=== PATIENT | male | born 1955 | race Caucasian/White ===

== ENCOUNTER → 2018-12-25 08:53 | Outpatient (CLI) | payer OTHER, SELFPAY ==
[2018-12-25 12:58] LABS: Hemoglobin A1c 5.3 % (4.2-6.3)
[2018-12-25 13:08] LABS: Anion Gap 5 (5-15); BUN 14 mg/dL (7-18); Calcium,Total 8.9 mg/dL (8.5-10.1); Chloride 108 mmol/L (98-107); EST Glomerular Filtration Rate 80 mL/min (>60); Est Glom Filt Rate - Afr Amer 97 mL/min (>60); Glucose 100 mg/dL (74-106); Potassium 4.1 mmol/L (3.5-5.1); Sodium Level 141 mmol/L (136-145); T4 Free Direct 0.71 ng/dL (0.76-1.46); Thyroid Stim Hormone (TSH) 1.82 uIU/mL (0.358-3.74)
== END ==
PROVIDERS: Family Provider Family Medicine; PCP Family Medicine; Visit Provider Family Medicine
DX: R73.01 Impaired fasting glucose (principal); F41.9 Anxiety disorder, unspecified
CPT/HCPCS: 36415; 80048; 83036; 84439; 84443

== ENCOUNTER → 2020-04-09 08:32 | Outpatient (CLI) | payer OTHER, SELFPAY ==
[2020-04-09 13:02] LABS: Anion Gap 4 (5-15); BUN 15 mg/dL (7-18); Calcium,Total 8.5 mg/dL (8.5-10.1); Chloride 109 mmol/L (98-107); Cholesterol 206 mg/dL (200); Creatinine, Serum 0.94 mg/dL (0.70-1.30); EST Glomerular Filtration Rate 86 mL/min (>60); Est Glom Filt Rate - Afr Amer 104 mL/min (>60); Glucose 100 mg/dL (74-106); High Density Lipoprotein 61 mg/dL; Sodium Level 139 mmol/L (136-145); Thyroid Stim Hormone (TSH) 1.24 uIU/mL (0.358-3.74); Triglycerides 69 mg/dL; Very Low Density Lipoprotein 14 mg/dL (5-40)
== END ==
PROVIDERS: Referring Provider Family Medicine; Visit Provider Family Medicine
DX: R73.01 Impaired fasting glucose (principal); F41.9 Anxiety disorder, unspecified
CPT/HCPCS: 36415; 80048; 80061; 84443

== ENCOUNTER 2021-04-26 08:23 | Outpatient (CLI) | payer MEDICARE, OTHER, SELFPAY ==
--- NOTE | 2021-04-26 08:31 | US_ITS ---
PROCEDURES: ULTRASOUND AORTA REASON FOR EXAM: Male, 65 years old. Screening exam, former smoker TECHNIQUE: Ultrasound evaluation of the aorta was performed with real-time and static cherry-scale imaging. COMPARISON: None. FINDINGS: There is mild tortuous elongation of the abdominal aorta. Aorta measures: Proximal 2.5 cm. Middle 2.0 cm. Distal 2.2 cm. Aorta measure transversely: Proximal 2.3 cm. Middle 2.0 cm. Distal 2.0 cm. Right iliac artery measures: 1.4 cm. Right iliac artery measure transversely: 1.3 cm. Left iliac artery measures: 1.4 cm. Left iliac artery measure transversely: 1.3 cm. There is no demonstrated aneurysm.. US/Aorta IMPRESSION: Normal abdominal aorta. Electronically Signed: Javier Garcia MD at 12:20 EST ,
== END 2021-04-26 23:59 | disposition home or self-care (01) ==
PROVIDERS: PCP Family Medicine; Visit Provider Family Medicine
DX: Z87.891 Personal history of nicotine dependence (principal)
CPT/HCPCS: 76775

== ENCOUNTER → 2022-08-01 | Outpatient (CLI) | payer MEDICARE, OTHER, SELFPAY ==
[2022-08-01 15:45] LABS: Absolute Lymphocyte Count 1.49 X10^3/uL (0.83-4.51); Absolute Neutrophil Count 2.9 X10^3/uL (2.0-7.7); Basophil# 0.06 X10^3/uL; Basophil% 1.2 % (0-1); Eosinophil# 0.12 X10^3/uL; Eosinophils% 2.3 % (0-5); Hematocrit 44.4 % (40-54); Hemoglobin 14.8 g/dL (13.0-16.5); Lymphocyte # 1.49 X10^3/ul (0.83-4.51); Lymphocyte % 28.9 % (19-41); Mean Corp Hgb Conc 33.3 g/dL (32-36); Mean Corpuscular Hgb 32.5 pg (27.0-32.0); Mean Corpuscular Volume 97.4 fL (80-94); Mean Platelet Vol. 9.5 fl (6.2-12.0); Monocyte# 0.61 X10^3/uL; Monocyte% 11.8 % (0-10); NRBC Flagged by Analyzer 0 % (0-5); Neutrophil # 2.87 X10^3/uL (2.7-7.7); Neutrophil % 55.6 % (47-70); Platelet Count 279 K/mm3 (150-450); RBC Distribution Width CV 12.6 % (11.6-14.6); RBC Distribution Width SD 45.3 fl (35.1-43.9); Red Blood Count 4.56 M/mm3 (4.6-6.2); White Blood Count 5.2 K/mm3 (4.4-11.0)
[2022-08-01 15:49] LABS: AST(SGOT) 34 U/L (15-37); Alanine Aminotransfer ALT/SGPT 53 U/L (16-61); Albumin, Serum 3.8 g/dL (3.2-5.0); Alkaline Phosphatase 49 U/L (45-117); Anion Gap 6 (5-15); BUN 8 mg/dL (7-18); Calcium,Total 8.9 mg/dL (8.5-10.1); Chloride 106 mmol/L (98-107); Cholesterol 232 mg/dL (200); EST Glomerular Filtration Rate 80 mL/min (>60); Est Glom Filt Rate - Afr Amer 96 mL/min (>60); Globulin 3.9 g/dL (2.2-4.2); Glucose 97 mg/dL (74-106); High Density Lipoprotein 71 mg/dL; Potassium 4.2 mmol/L (3.5-5.1); Protein, Total 7.7 g/dL (6.4-8.2); Sodium Level 140 mmol/L (136-145); Triglycerides 92 mg/dL; Very Low Density Lipoprotein 18 mg/dL (5-40)
== END | disposition home or self-care (01) ==
LOC: BFHLAB 11:54
PROVIDERS: PCP Nurse Practitioner Family; Referring Provider Nurse Practitioner Family; Visit Provider Nurse Practitioner Family
DX: R73.01 Impaired fasting glucose (principal); I10 Essential (primary) hypertension; E78.5 Hyperlipidemia, unspecified
CPT/HCPCS: 36415; 80053; 80061; 85025

== ENCOUNTER → 2022-09-25 | Outpatient (CLI) | payer MEDICARE, OTHER, SELFPAY ==
[2022-09-25 12:52] LABS: Cholesterol 230 mg/dL (200); High Density Lipoprotein 63 mg/dL; Triglycerides 78 mg/dL; Very Low Density Lipoprotein 16 mg/dL (5-40)
== END | disposition home or self-care (01) ==
LOC: BFHLAB 09:20
PROVIDERS: PCP Nurse Practitioner Family; Referring Provider Nurse Practitioner Family; Visit Provider Nurse Practitioner Family
DX: E78.5 Hyperlipidemia, unspecified (principal)
CPT/HCPCS: 36415; 80061

== ENCOUNTER 2022-10-19 09:05 | Day surgery (SDC) | payer MEDICARE, OTHER, SELFPAY ==
[2022-10-19 09:32] VITALS: BP 153/80; PULSE 57; RESP 16; TEMP 36.6; O2SAT 98; BMI 27.0
[2022-10-19] MEDS: Lactated Ringers 1,000 ML 15 ML IV (09:36)
--- NOTE | 2022-10-19 10:15 | COLBX_PTH ---
PATIENT: JASON BRISCOE LOC: EN U#:[id number] AGE/SX: 67/M ROOM: RE10/19/[address]: Dr. Te Tran DO : 1955 BED: DIS: 10/19/2022 SPEC #: [id number] RECD: 10/19/22 12:56 STATUS: CINDY REArnulfo #: [id number] HERB: 10/19/22 10:[address]: Te Tran DEPT: SURGICAL PATHOLOGY RECD BY: Juliet Joyner ENTERED: 10/19/22 13:39 SP TYPE: COLON BX OTHR DR: Lenore Saleh, DOWELER-C Tissues: A - COLON BIOPSY B - COLON BIOPSY Procedures: Surgery Specimen Level IV HEADER OPERATION: Colonoscopy - open access (MAC), biopsy PRE-OP DIAGNOSIS: Screening TISSUE SUBMITTED: A - Hepatic flexure polyp biopsy, B - Splenic flexure polyp biopsy MICROSCOPIC DIAGNOSIS A. Hepatic flexure polyp, biopsy: Tubular adenoma. B. Splenic flexure polyp, biopsy: Tubular adenoma. BEAR:claudia 10/20/2022 MICROSCOPIC DESCRIPTION Slides are reviewed. GROSS DESCRIPTION A - Received in fixative is one container labeled with the patient's name and designated hepatic flexure polyp. The specimen consists of multiple irregular fragments of light french soft tissue that in aggregate measure 0.8 x 0.5 x 0.1 cm. The specimen is totally submitted in one cassette. B - Received in fixative is one container labeled with the patient's name and designated splenic flexure polyp. The specimen consists of one irregular fragment of light french soft tissue that measures 0.6 x 0.3 x 0.1 cm. The specimen is totally submitted in one cassette. / BEAR:claudia 10/19/2022 TC:1 [facility]: [id number] x2
--- NOTE | 2022-10-19 11:17 | PCM.HP.STD ---
HPI - General General Date of Admission: 10/19/22 Date of Service: 10/19/22 Chief Complaint: Screening colonoscopy HPI Narrative JASON BRISCOE, is a 67 M who presents today for screening colonoscopy. He had a colonoscopy approximately 12 years ago which was normal. He does not have any abdominal pain. He is not have any nausea vomiting or diarrhea. Overall is in very good health. [facility] Medical History (Updated 10/16/22 @ 11:30 by Michelle Warner) Anxiety Depression Former smoker Hypertension IFG (impaired fasting glucose) Wears glasses Home Medications multivitamin 1 tab PO DAILY 08/08/22 [History Last Taken Unknown] paroxetine HCl 20 mg tablet 20 mg PO DAILY 08/08/22 [History Last Taken Unknown] glucosamine sulf dipot chlr,msm,chond 550 mg-C 30 mg-sis 1 mg capsule (Glucosamine Chondroitin) 1 cap PO .Q3 DAYS 10/16/22 [History Last Taken Unknown] lisinopril 10 mg tablet 10 mg PO DAILY 10/16/22 [History Last Taken Unknown] Allergy/AdvReac Type Severity Reaction Status Date / Time No Known Allergies Allergy Verified 10/19/22 09:32 Family History (Updated 08/08/22 @ 13:41 by Louise Arboleda) Father Colon cancer Mother Hypertension Surgical History (Updated 08/08/22 @ 13:40 by Louise Arboleda) History of colonoscopy Social History (Updated 08/08/22 @ 13:42 by Louise Arboleda) current occupational status: employed Smoking Status: Former smoker ROS Review of Systems ROS Unobtainable: other Constitutional Constitutional: Denies fatigue, fever(s), poor appetite, weight gain or weight loss ENT HEENT: Denies mouth lesions Cardiovascular Cardiovascular: Denies abdominal bloating, abdominal edema or abdominal pain Respiratory/Chest Respiratory/Chest: Denies change in mental status, change in phlegm color, chest congestion or chest tightness Gastrointestinal Gastrointestinal: Denies belching, bloating, change in bowel habits, change in stool character, chewing difficulty, coffee ground emesis, constipation, cramping, diarrhea, dyspepsia, dysphagia, early satiety, excessive flatus, fecal incontinence, heartburn, hematemesis, hematochezia, hemorrhoids, loose stools, melena, nausea, odynophagia, rectal bleeding, tenesmus, vomiting or weight changes Genitourinary Genitourinary: Denies abdominal discomfort, burning urination or itching Musculoskeletal Musculoskeletal: Reports as per HPI; Denies muscle weakness or myalgias Integumentary Integumentary: Denies jaundice Neurologic Neurologic: Denies lack of coordination or weakness Psychiatric Psychiatric: Denies confusion, depression, memory loss, mood swings, paranoia or suicidal ideation Endocrine Endocrinology: Denies systems reviewed and no addt'l complaints, except as documented Hematologic/Lymphatic Hematologic/Lymphatic: Denies anemia, easy bleeding, easy bruising or lymphadenopathy Allergic/Immunologic Allergic/Immunologic: Denies systems reviewed and no addt'l complaints, except as documented Vital Signs Vital Signs Vital Signs: 10/19/22 09:32 10/19/22 09:32 Temperature 97.8 F Temperature Source Temporal Pulse Rate 57 L Respiratory Rate 16 Respiratory Pattern Normal Blood Pressure 153/80 H Blood Pressure Mean 104 Blood Pressure Source Monitor Blood Pressure Position Semi-Fowlers Blood Pressure Location Right Arm Pulse Ox 98 Oxygen Delivery Method Room Air Weight Weight: 204 lb 12.951 oz Body Mass Index (BMI) 27.0 Physical Exam Const alert General Appearance: cooperative Orientation / Consciousness: oriented to person HEENT hearing grossly normal bilaterally Head and Scalp: normal to inspection Face and Sinus: face symmetric Nose: external nose normal Mouth: oral and palatal mucosa normal Eyes conjunctivae normal General Eye: normal appearance of both eyes Neck full ROM General: normal visual inspection Lymph Lymphatic: no lymphadenopathy noted Chest inspection of chest normal and palpation of chest normal Chest: symmetrical chest wall rise Resp normal respiratory effort Effort and Inspection: able to speak in complete sentences Cardio regular rate GI non-distended Percussion: normal to percussion Rectal Exam: deferred Neuro Speech: speech normal Gait (Neuro): normal gait Assessment & Plan Assessment/Plan (1) Encounter for screening for malignant neoplasm of colon: PLAN: 67 old gentleman comes in for screening colonoscopy. He was explained alternatives, risk, benefits including not withstanding bleeding, infection, sepsis, perforation, need for emergent surgery and . He will have an ASA of 2.
[2022-10-19 11:50] VITALS: BP 111/73; BP 153/80; PULSE 64; RESP 16; TEMP 36.2; O2SAT 98
--- NOTE | 2022-10-19 11:52 | OP.CCLET_ITS ---
10/19/2022 Lisha Tillman Re : Colonoscopy procedure for Marlo Zhang Dear Delfino This procedure was performed on October. My impressions and recommendations are as follows: Impressions : - Diverticulosis in the recto-sigmoid colon, in the sigmoid colon and in the descending colon. - Three 1 to 2 mm polyps at the splenic flexure and at the hepatic flexure, removed with a cold snare. Resected and retrieved. - The examination was otherwise normal on direct and retroflexion views. Recommendations : - Discharge patient to home. - Resume previous diet. - Continue present medications. - Await pathology results. - Repeat colonoscopy in 5 years for surveillance. My findings are described in the full procedure note, which is enclosed. If I can be of further assistance, please feel free to contact me at . Sincerely, Te Tran, 10/19/2022 11:52:29 AM This report has been signed electronically.
--- NOTE | 2022-10-19 11:52 | OP.COLON_ITS ---
Patient Name: Marlo Zhang Procedure Date: 10/19/2022 11:26 AM Date of : 1955 Age: 67 Procedure: Colonoscopy Indications: Screening for colorectal malignant neoplasm Providers: Te Tran DO Referring MD: Te Tran DO Medicines: Monitored Anesthesia Care Patient Profile: This is a 67 year old male. Refer to note in patient chart for documentation of history and physical. Last Colonoscopy: 5 years ago. Complications: No immediate complications. Procedure: Pre-Anesthesia Assessment: - Prior to the procedure, a History and Physical was performed, and patient medications and allergies were reviewed. The risks and benefits of the procedure and the sedation options and risks were discussed with the patient. All questions were answered and informed consent was obtained. Patient identification and proposed procedure were verified by the physician in the pre-procedure area. Mental Status Examination: alert and oriented. Airway Examination: normal oropharyngeal airway and neck mobility. Respiratory Examination: clear to auscultation. CV Examination: normal. Prophylactic Antibiotics: The patient does not require prophylactic antibiotics. Prior Anticoagulants: The patient has taken no previous anticoagulant or antiplatelet agents. After reviewing the risks and benefits, the patient was deemed in satisfactory condition to undergo the procedure. The anesthesia plan was to use monitored anesthesia care (MAC). Immediately prior to administration of medications, the patient was re-assessed for adequacy to receive sedatives. The heart rate, respiratory rate, oxygen saturations, blood pressure, adequacy of pulmonary ventilation, and response to care were monitored throughout the procedure. The physical status of the patient was re-assessed after the procedure. After I obtained informed consent, the scope was passed under direct vision. Throughout the procedure, the patient's blood pressure, pulse, and oxygen saturations were monitored continuously. The Colonoscope was introduced through the anus and advanced to the cecum, identified by appendiceal orifice and ileocecal valve. The colonoscopy was performed without difficulty. The patient tolerated the procedure well. The quality of the bowel preparation was adequate. Moderate Sedation: Moderate (conscious) sedation was personally administered by an anesthesia professional. The following parameters were monitored: oxygen saturation, heart rate, blood pressure, and response to care. Total physician intraservice time was 15 minutes. Scope In: 11:30:49 AM Scope Withdrawal Time 0 hours 10 minutes 18 seconds Scope Out: 11:46:47 AM Total Procedure Duration Time 0 hours 15 minutes 58 seconds Findings: The perianal and digital rectal examinations were normal. Multiple small and large-mouthed diverticula were found in the recto-sigmoid colon, sigmoid colon and descending colon. Three sessile polyps were found in the splenic flexure and hepatic flexure. The polyps were 1 to 2 mm in size. These polyps were removed with a cold snare. Resection and retrieval were complete. Verification of patient identification for the specimen was done. Estimated blood loss was minimal. The exam was otherwise without abnormality on direct and retroflexion views. Impression: - Diverticulosis in the recto-sigmoid colon, in the sigmoid colon and in the descending colon. - Three 1 to 2 mm polyps at the splenic flexure and at the hepatic flexure, removed with a cold snare. Resected and retrieved. - The examination was otherwise normal on direct and retroflexion views. Recommendation: - Discharge patient to home. - Resume previous diet. - Continue present medications. - Await pathology results. - Repeat colonoscopy in 5 years for surveillance. Procedure Code(s): --- Professional --- 70881, Colonoscopy, flexible; with removal of tumor(s), polyp(s), or other lesion(s) by snare technique CPT copyright 2017 [employer]. All rights reserved. The codes documented in this report are preliminary and upon pharmacy associate review may be revised to meet current compliance requirements. Te Tran DO 10/19/2022 11:52:29 AM This report has been signed electronically. Number of Addenda: 0 Note Initiated On: 10/19/2022 11:26 AM
[2022-10-19 11:55] VITALS: BP 104/75; BP 153/80; PULSE 61; RESP 16; O2SAT 96
[2022-10-19 12:00] VITALS: BP 115/77; BP 153/80; PULSE 59; RESP 16; O2SAT 97
[2022-10-19 12:04] VITALS: BP 117/81; BP 153/80; PULSE 60; RESP 16; TEMP 36.8; O2SAT 98
[2022-10-19 12:28] VITALS: BP 153/80
== END 2022-10-19 12:44 | disposition home or self-care (01) ==
LOC: EN 09:07 → AC 09:10
PROVIDERS: PCP Nurse Practitioner Family; Referring Provider Nurse Practitioner Family; Visit Provider Internal Medicine Gastroenterology
PROC: 0DJD8ZZ Inspection of Lower Intestinal Tract, Via Natural or Artificial Opening Endoscopic (ICD-10-PCS; CPT 45378; principal; 2022-10-19 10:10)
DX: Z12.11 Encounter for screening for malignant neoplasm of colon (principal); I10 Essential (primary) hypertension; K57.30 Diverticulosis of large intestine without perforation or abscess without bleeding; Z87.891 Personal history of nicotine dependence; Z80.0 Family history of malignant neoplasm of digestive organs; D12.3 Benign neoplasm of transverse colon
CPT/HCPCS: 45385; 88305; J7120; J2405

== ENCOUNTER → 2023-02-19 | Outpatient (CLI) | payer MEDICARE, OTHER, SELFPAY ==
[2023-02-19 12:34] LABS: Absolute Lymphocyte Count 1.45 X10^3/uL (0.83-4.51); Absolute Neutrophil Count 2.9 X10^3/uL (2.0-7.7); Basophil# 0.05 X10^3/uL; Eosinophil# 0.13 X10^3/uL; Eosinophils% 2.5 % (0-5); Hematocrit 42.1 % (40-54); Lymphocyte # 1.45 X10^3/ul (0.83-4.51); Lymphocyte % 27.8 % (19-41); Mean Corp Hgb Conc 33.3 g/dL (32-36); Mean Corpuscular Hgb 32.2 pg (27.0-32.0); Mean Corpuscular Volume 96.8 fL (80-94); Mean Platelet Vol. 9.2 fl (6.2-12.0); Monocyte# 0.67 X10^3/uL; Monocyte% 12.8 % (0-10); NRBC Flagged by Analyzer 0 % (0-5); Neutrophil # 2.91 X10^3/uL (2.7-7.7); Neutrophil % 55.7 % (47-70); Platelet Count 263 K/mm3 (150-450); RBC Distribution Width CV 12.3 % (11.6-14.6); RBC Distribution Width SD 44.7 fl (35.1-43.9); Red Blood Count 4.35 M/mm3 (4.6-6.2); White Blood Count 5.2 K/mm3 (4.4-11.0)
[2023-02-19 13:06] LABS: AST(SGOT) 47 U/L (15-37); Alanine Aminotransfer ALT/SGPT 74 U/L (16-61); Albumin, Serum 3.4 g/dL (3.2-5.0); Alkaline Phosphatase 54 U/L (45-117); Anion Gap 6 (5-15); BUN 12 mg/dL (7-18); BUN/Creat Ratio 13.8 RATIO (10-20); Calcium,Total 8.6 mg/dL (8.5-10.1); Chloride 106 mmol/L (98-107); Cholesterol 143 mg/dL (200); Creatinine, Serum 0.87 mg/dL (0.70-1.30); EST Glomerular Filtration Rate 93 mL/min (>60); Est Glom Filt Rate - Afr Amer 113 mL/min (>60); Globulin 3.4 g/dL (2.2-4.2); Glucose 97 mg/dL (74-106); High Density Lipoprotein 69 mg/dL; Protein, Total 6.8 g/dL (6.4-8.2); Sodium Level 138 mmol/L (136-145); Triglycerides 44 mg/dL; Very Low Density Lipoprotein 9 mg/dL (5-40)
== END | disposition home or self-care (01) ==
LOC: BFHLAB 11:03
PROVIDERS: PCP Nurse Practitioner Family; Visit Provider Nurse Practitioner Family
DX: E78.5 Hyperlipidemia, unspecified (principal); I10 Essential (primary) hypertension
CPT/HCPCS: 36415; 80053; 80061; 85025

== ENCOUNTER → 2024-08-04 | Outpatient (CLI) | payer MEDICARE, SELFPAY ==
[2024-08-04 12:26] LABS: Absolute Lymphocyte Count 1.86 X10^3/uL (0.83-4.51); Absolute Neutrophil Count 3.1 X10^3/uL (2.0-7.7); Basophil# 0.05 X10^3/uL; Basophil% 0.8 % (0-1); Eosinophil# 0.12 X10^3/uL; Hemoglobin 14.6 g/dL (13.0-16.5); Lymphocyte # 1.86 X10^3/ul (0.83-4.51); Lymphocyte % 31.2 % (19-41); Mean Corpuscular Hgb 32.2 pg (27.0-32.0); Mean Corpuscular Volume 94.9 fL (80-94); Monocyte# 0.82 X10^3/uL; Monocyte% 13.8 % (0-10); NRBC Flagged by Analyzer 0 % (0-5); Neutrophil # 3.09 X10^3/uL (2.7-7.7); Neutrophil % 51.9 % (47-70); Platelet Count 254 K/mm3 (150-450); RBC Distribution Width CV 12.5 % (11.6-14.6); RBC Distribution Width SD 43.5 fl (35.1-43.9); Red Blood Count 4.53 M/mm3 (4.6-6.2)
[2024-08-04 14:58] LABS: ALB/GLOB Ratio 1.7 RATIO (0.9-2.4); AST(SGOT) 41 U/L (<=37); Alanine Aminotransfer ALT/SGPT 45 U/L (<=46); Albumin, Serum 4.2 g/dL (3.4-4.8); Alkaline Phosphatase 56 U/L (40-129); Anion Gap 10 (5-15); BUN 11 mg/dL (4-19); BUN/Creat Ratio 12.6 RATIO (10-20); Calcium,Total 9.2 mg/dL (7.6-11.0); Carbon Dioxide 24.6 mmol/L (21.0-32.0); Chloride 100 mmol/L (98-108); Cholesterol 153 mg/dL (<=200); Creatinine, Serum 0.85 mg/dL (0.70-1.20); EST Glomerular Filtration Rate 95 (>60); Globulin 2.5 g/dL (2.2-4.2); Glucose 103 mg/dL (70-99); High Density Lipoprotein 69 mg/dL; Low Density Lipoprotein Calc. 71 mg/dL; PSA,Total - Annual Screen 0.67 ng/mL (0.02-4.00); Potassium 4.7 mmol/L (3.3-5.1); Protein, Total 6.7 g/dL (5.9-8.4); Sodium Level 135 mmol/L (133-145); Total Bilirubin 0.64 mg/dL (0.00-1.30); Triglycerides 64 mg/dL; Very Low Density Lipoprotein 13 mg/dL (5-40); cholesterol:hdl ratio screen 2.22
== END | disposition home or self-care (01) ==
LOC: MTLAB 09:38
PROVIDERS: PCP Nurse Practitioner Family; Referring Provider Nurse Practitioner Family; Visit Provider Nurse Practitioner Family
DX: Z12.5 Encounter for screening for malignant neoplasm of prostate (principal); I10 Essential (primary) hypertension; E78.5 Hyperlipidemia, unspecified
CPT/HCPCS: 36415; 80053; 80061; 84153; 85025; G0103